=== PATIENT | male | born 1955 | race Caucasian/White ===

== ENCOUNTER 2021-06-23 07:15 | Emergency (ER) | payer BC ==
[~2021-06-23] VITALS: Ht 177.8 cm; Wt 104.5 kg
[2021-06-23 08:18] LABS: BASO # 0.03 (0.02-0.10); EOS # 0.11 (0.04-0.40); EOS % 2.1 % (0.0-4.0); HEMATOCRIT 48.4 % (42.0-52.0); HEMOGLOBIN 16.2 g/dL (13.5-18.0); LYMPH# 1.33 (1.50-4.00); MEAN CELL VOLUME 104 fl (78-100); MEAN CORPUSCULAR HEMOGLOBIN 35 pg (27-31); MEAN CORPUSCULAR HGB CONC 34 g/dL (33-37); MEAN PLATELET VOLUME 9.6 fl (7.4-10.4); MONO # 0.53 (0.20-0.80); NEU # 3.12 (1.40-6.50); PLATELET COUNT 208 K/mm3 (130-400); RED BLOOD COUNT 4.66 M/mm3 (4.20-5.60); RED CELL DISTRIBUTION WIDTH 12.6 % (11.5-14.5); WHITE BLOOD COUNT 5.1 K/mm3 (4.8-10.8)
[2021-06-23 08:27] LABS: URINE APPEARANCE CLEAR; URINE BILIRUBIN NEGATIVE (NEGATIVE); URINE BLOOD NEGATIVE (NEGATIVE); URINE COLOR YELLOW; URINE GLUCOSE NEGATIVE (NEGATIVE); URINE KETONE NEGATIVE (NEGATIVE); URINE LEUKOCYTE ESTERASE NEGATIVE (NEGATIVE); URINE MUCUS PRESENT (NOT PRESENT); URINE NITRATE NEGATIVE (NEGATIVE); URINE PROTEIN(semi-quant) NEGATIVE (NEGATIVE); URINE UROBILINOGEN NORMAL (NORMAL); URINE WBC 0-1 /hpf (0-3)
[2021-06-23 08:34] LABS: ALBUMIN 3.8 g/dL (3.4-4.8); POTASSIUM 3.7 mmol/L (3.5-5.1)
[2021-06-23 08:35] LABS: CALCIUM 9.5 mg/dL (8.3-10.5)
[2021-06-23 08:37] LABS: TOTAL PROTEIN 6.9 g/dL (6.2-8.1)
[2021-06-23 08:38] LABS: TOTAL BILIRUBIN 0.6 mg/dL (0.2-1.2)
[2021-06-23] MEDS ORDERED: LISINOPRIL10 MG PO (08:57)
[2021-06-23 09:00] VITALS: BP 172/88
== END 2021-06-23 09:06 | disposition home or self-care (01) ==
LOC: ED 07:15
PROVIDERS: Physician Assistant
DX: K59.00 Constipation, unspecified (principal); I10 Essential (primary) hypertension; Z87.891 Personal history of nicotine dependence

== ENCOUNTER 2021-11-19 13:25 | Emergency (ER) | payer BC ==
[~2021-11-19] VITALS: Ht 177.8 cm; Wt 110.2 kg
[~2021-11-19 13:25] MED LIST: LISINOPRIL10 MG PO
[2021-11-19 14:18] LABS: BASO # 0.04 K/mm3 (0.02-0.10); EOS # 0.14 K/mm3 (0.04-0.40); EOS % 1.8 % (0.0-4.0); HEMATOCRIT 45.9 % (42.0-52.0); HEMOGLOBIN 16.1 g/dL (13.5-18.0); LYMPH# 2.01 K/mm3 (1.50-4.00); MEAN CELL VOLUME 100 fl (78-100); MEAN CORPUSCULAR HEMOGLOBIN 35 pg (27-31); MEAN CORPUSCULAR HGB CONC 35 g/dL (33-37); MEAN PLATELET VOLUME 10.6 fl (7.4-10.4); MONO # 0.59 K/mm3 (0.20-0.80); NEU # 5.05 K/mm3 (1.40-6.50); PLATELET COUNT 202 K/mm3 (130-400); RED BLOOD COUNT 4.57 M/mm3 (4.20-5.60); RED CELL DISTRIBUTION WIDTH 12.8 % (11.5-14.5); WHITE BLOOD COUNT 7.8 K/mm3 (4.8-10.8)
[2021-11-19 14:33] LABS: ALBUMIN 3.9 g/dL (3.4-4.8); POTASSIUM 4.8 mmol/L (3.5-5.1)
[2021-11-19 14:34] LABS: CALCIUM 10.2 mg/dL (8.3-10.5)
[2021-11-19 14:35] LABS: TOTAL PROTEIN 6.7 g/dL (6.2-8.1)
[2021-11-19 14:37] LABS: TOTAL BILIRUBIN 0.5 mg/dL (0.2-1.2)
[2021-11-19 14:39] LABS: D-DIMER 1.2 mg/L FEU (0.15-0.50)
[2021-11-19 15:06] LABS: URINE APPEARANCE CLEAR; URINE BILIRUBIN NEGATIVE (NEGATIVE); URINE BLOOD NEGATIVE (NEGATIVE); URINE COLOR YELLOW; URINE GLUCOSE NEGATIVE (NEGATIVE); URINE KETONE 2+ (NEGATIVE); URINE LEUKOCYTE ESTERASE NEGATIVE (NEGATIVE); URINE NITRATE NEGATIVE (NEGATIVE); URINE PROTEIN(semi-quant) NEGATIVE (NEGATIVE); URINE UROBILINOGEN NORMAL (NORMAL); URINE WBC 0-1 /hpf (0-3)
[2021-11-19] MEDS ORDERED: METOPROLOL SUCC50 M1 PO (17:56)
[2021-11-19] MEDS ORDERED: ELIQUIS5 MG PO (17:56)
[2021-11-19 18:21] VITALS: BP 109/85
== END 2021-11-19 18:21 | disposition home or self-care (01) ==
LOC: ED 13:25
PROVIDERS: Family Medicine
DX: I48.91 Unspecified atrial fibrillation (principal); I48.92 Unspecified atrial flutter; R01.1 Cardiac murmur, unspecified; I10 Essential (primary) hypertension; Z79.899 Other long term (current) drug therapy
CPT/HCPCS: Q9967

== ENCOUNTER 2023-10-15 14:27 | Emergency (ER) | payer MEDICARE ==
[~2023-10-15] VITALS: Ht 180.3 cm; Wt 114.8 kg
[~2023-10-15 14:27] MED LIST changes: +ELIQUIS5 MG PO; +METOPROLOL SUCC50 M1 PO
[2023-10-15] MEDS ORDERED: CLOPIDOGREL PO (14:33)
[2023-10-15] MEDS ORDERED: KAPSPARGO SPRIN25 MG PO (14:33)
[2023-10-15] MEDS ORDERED: VAZALORE81 MG PO (14:34)
[2023-10-15] MEDS ORDERED: LIPITOR 80MG80 MG PO (14:34)
[2023-10-15 15:04] LABS: BASO # 0.03 K/mm3 (0.02-0.10); EOS # 0.25 K/mm3 (0.04-0.40); EOS % 2.9 % (0.0-4.0); HEMATOCRIT 44.6 % (42.0-52.0); HEMOGLOBIN 15.3 g/dL (13.5-18.0); LYMPH# 1.84 K/mm3 (1.50-4.00); MEAN CELL VOLUME 102 fl (78-100); MEAN CORPUSCULAR HEMOGLOBIN 35 pg (27-31); MEAN CORPUSCULAR HGB CONC 34 g/dL (33-37); MONO # 0.71 K/mm3 (0.20-0.80); PLATELET COUNT 230 K/mm3 (130-400); RED BLOOD COUNT 4.37 M/mm3 (4.20-5.60); RED CELL DISTRIBUTION WIDTH 11.8 % (11.5-14.5); WHITE BLOOD COUNT 8.6 K/mm3 (4.8-10.8)
[2023-10-15 15:08] LABS: ALBUMIN 4.1 g/dL (3.4-4.8)
[2023-10-15 15:10] LABS: CALCIUM 8.7 mg/dL (8.3-10.5)
[2023-10-15 15:11] LABS: TOTAL PROTEIN 6.9 g/dL (6.2-8.1)
[2023-10-15 15:13] LABS: TOTAL BILIRUBIN 0.4 mg/dL (0.2-1.2)
[2023-10-15 15:17] LABS: MAGNESIUM 1.96 mg/dL (1.60-2.60)
[2023-10-15 16:56] VITALS: BP 132/94
== END 2023-10-15 16:55 | disposition home or self-care (01) ==
LOC: ED 14:27
PROVIDERS: Nurse Practitioner Family
DX: R00.0 Tachycardia, unspecified (principal); Z86.79 Personal history of other diseases of the circulatory system; Z79.02 Long term (current) use of antithrombotics/antiplatelets
CPT/HCPCS: J7040

== ENCOUNTER 2024-03-22 08:00 | Outpatient (RCR) | payer MEDICARE ==
[~2024-03-22 08:00] MED LIST changes: +CLOPIDOGREL PO; +KAPSPARGO SPRIN25 MG PO; +LIPITOR 80MG80 MG PO; +VAZALORE81 MG PO
== END 2024-04-20 | disposition home or self-care (01) ==
LOC: PT
DX: M47.812 Spondylosis without myelopathy or radiculopathy, cervical region (principal)